=== PATIENT | female | born 1955 | race Caucasian/White ===

== ENCOUNTER → 2017-09-30 | Outpatient (CLI) | payer BC, MEDICARE ==
[~2017-09-30] MED LIST: ACE3 PO; ALB18R INH; ALBU0.636 IH; ALBUTEROL IH; ALBUTEROL NEB IH; ALP25 PO; ALPR-429 PO; BUDE10.2 INH; CEPH500T7 PO; CETI-176 PO; CYCL1DRO6 OP; DOXY-179 PO; DULERAPT INH; ESCI20TA8 PO; HYDR12.561 PO; LACT1CAP64 PO; LIDO700A19 TOP; LISI-357 PO; LOSA100T63 PO; LOSA100T67 PO; MULT-1097 PO; MUPI15CR2 TP; NAPR-1043 PO; NICO2LOZ70 BC; PER PO
[2017-09-30 12:38] LABS: PLATELET COUNT, AUTOMATED 278 K/uL (150-450)
[2017-09-30 13:18] LABS: LDL CHOLESTEROL 136 mg/dl
== END ==
LOC: LAB 12:22
PROVIDERS: ATTEND Emergency Medicine
DX: I10 Essential (primary) hypertension (principal); Z72.9 Problem related to lifestyle, unspecified
CPT/HCPCS: 36415; 82040; 82247; 82310; 82374; 82435; 82465; 82565; 82947; 83718; 84075; 84132; 84155; 84295; 84443; 84450; 84460; 84478; 84520; 85025; 86803

== ENCOUNTER → 2018-06-02 | Outpatient (CLI) | payer BC, MEDICARE ==
[~2018-06-02] MED LIST changes: +AMLO-125 PO; +HYDR-2966 PO; -LOSA100T67 PO; +LOSA100T75 PO; -MULT-1097 PO; +MULT-1540 PO
== END ==
LOC: US 03:22
PROVIDERS: ATTEND Emergency Medicine
DX: I51.7 Cardiomegaly (principal)
CPT/HCPCS: 93306

== ENCOUNTER → 2018-07-21 | Outpatient (CLI) | payer BC, MEDICARE ==
[~2018-07-21] MED LIST changes: +IOPAMIDOL 76% 100 ML INFUS BTL 100 ML ONE
--- NOTE | 2018-07-21 14:20 | RADIOLOGY IMAGING REPORT ---
FACILITY: [facility] - [place] PATIENT NAME: Gemma Avilez : 1955 MR: [id number] V: [id number] EXAM DATE: ORDERING PHYSICIAN: MALLORY MARS TECHNOLOGIST: Location: [facility] [place] Patient: Gemma Avilez : 1955 Visit/Account:[id number] Date of Sevice: 07/21/2018 EXAMINATION: CT neck without IV contrast CT neck with IV contrast HISTORY: Swelling in the right neck. Attention parotid, rule out stone. COMPARISON: None. TECHNIQUE: Spiral scan was obtained from the hard palate through the upper chest without and with n onionic iodinated intravenous contrast. Sagittal and coronal reformatted images are also submitted. CONTRAST: 75 mL of IV Isovue-370. One of the following dose optimization techniques was utilized in the performance of this exam: Autom ated exposure control; adjustment of the mA and/or kV according to the patient's size; or use of an i terative reconstruction technique. Specific details can be referenced in the facility's radiology C T exam operational policy. FINDINGS: Masses/lesions: There are a few punctate calcifications in the right parotid gland. Mild edema and increased enhancement of the gland compared to the opposite side. There are no stones within the marivel t. Mildly heterogeneous thyroid without focal lesion. There is a 2.0 x 1.3 cm cystic lesion in the upper mediastinum slightly eccentric to the left, anteri or to the trachea. The lesion has smooth bowie, and does not enhance. Airway: Normal. Vessels: Negative. Musculoskeletal/body wall: Moderate degenerative changes of the cervical spine. Lymph nodes: There are a few reactive lymph nodes in the right upper neck. Visualized orbits/brain/paranasal sinuses: Negative. Upper chest: Negative. IMPRESSION: 1. Acute right parotitis, without an obstructing stone visualized. This could be due to a recently passed stone or acute bacterial parotitis. 2. 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 Report Dictated By: Nasra Cortes MD at 07/21/2018 2:08 PM Report E-Signed By: Nasra Cortes MD at 07/21/2018 2:16 PM WSN:[facility]PITALFreddyWoo
== END ==
LOC: CT 12:19
PROVIDERS: ATTEND Physician Assistant
DX: K11.20 Sialoadenitis, unspecified (principal); E32.8 Other diseases of thymus
CPT/HCPCS: 36415; 70492; Q9967; 82310; 82374; 82435; 82565; 82947; 84132; 84295; 84520

== ENCOUNTER → 2018-09-23 | Outpatient (CLI) | payer BC, MEDICARE ==
[~2018-09-23] MED LIST changes: +AMLO-127 PO; -IOPAMIDOL 76% 100 ML INFUS BTL 100 ML ONE
--- NOTE | 2018-09-24 09:49 | RADIOLOGY IMAGING REPORT ---
[facility] PATIENT NAME: SWETHA KAUR : [id number] MR: [id number] V: [id number] EXAM DATE: [id number] ORDERING PHYSICIAN: ROBERT FARIAS TECHNOLOGIST: Sally Sotelo PROCEDURE: BILATERAL DIGITAL SCREENING MAMMOGRAM WITH CAD ASSISTED INTERPRETATION & 3D TOMOSYNTHESIS. REASON FOR STUDY: Screening. FAMILY HISTORY OF BREAST CANCER: None. BREAST PROCEDURES/TREATMENTS: None. COMPARISON: There are no prior mammograms apparently available therefore this shall become the patient's baseline mammogram. If prior mammograms do become available an addendum can be dictated at that time. VIEWS OBTAINED: 2D & 3D full field CC & MLO. BREAST DENSITY: There are scattered areas of fibroglandular density throughout the breasts. MAMMOGRAM FINDINGS: There is no demonstration of dominant mass or malignant appearing calcification in either breast. IMPRESSION: BIRADS 1: Negative. DIAGNOSTIC CATEGORY 1--NEGATIVE. RECOMMENDATIONS: ROUTINE MAMMOGRAM AND CLINICAL EVALUATION. Dictated by: Amie Davenport M.D. on 09/23/2018 at 16:45 Transcribed by: SHEREE on 09/24/2018 at 8:33 Approved by: Amie Davenport M.D. on 09/24/2018 at 9:48 [facility]
== END ==
LOC: MAMO 00:35
PROVIDERS: ATTEND Emergency Medicine
DX: Z12.31 Encounter for screening mammogram for malignant neoplasm of breast (principal)
CPT/HCPCS: 77063; 77067